=== PATIENT | female | born 1945 | race Two or more races ===

== ENCOUNTER → 2020-10-06 08:00 | Outpatient (CLI) | payer OTHER | END | disposition home or self-care (01) | LOC: LAB 08:00 → ADM 14:00 → AMB-ENDOS 10-13 14:00 → EDSTATUS 10-13 14:00 | PROVIDERS: ATTEND Surgery | DX: U07.1 COVID-19 (principal); K57.32 Diverticulitis of large intestine without perforation or abscess without bleeding; R93.5 Abnormal findings on diagnostic imaging of other abdominal regions, including retroperitoneum; R10.32 Left lower quadrant pain ==